=== PATIENT | male | born 1985 | race Caucasian/White ===

== ENCOUNTER → 2019-08-01 | Outpatient (CLI) | payer OTHER | LOC: M LABSMTC 10:52 | PROVIDERS: ATTEND Family Medicine | DX: Z11.59 Encounter for screening for other viral diseases (principal) ==

== ENCOUNTER → 2019-11-02 | Outpatient (CLI) | payer OTHER | LOC: M LABSMTC 09:30 | PROVIDERS: ATTEND Pediatrics | DX: Z11.59 Encounter for screening for other viral diseases (principal) ==

== ENCOUNTER → 2020-03-03 | Outpatient (CLI) | payer OTHER | LOC: M LABSMTC 14:01 | PROVIDERS: ATTEND Family Medicine | DX: Z20.828 Contact with and (suspected) exposure to other viral communicable diseases (principal) ==

== ENCOUNTER → 2020-04-20 | Outpatient (REF) ==
--- NOTE | 2020-04-21 08:15 | REP ---
INDICATION: AUTOPSY COMPARISON: None. TECHNIQUE: Single AP view of the pelvis. FINDINGS: Single AP view of the pelvis demonstrates no acute fracture or dislocation. Surrounding soft tissues are unremarkable. IMPRESSION: Normal pelvic radiograph. <Electronically signed by Jas Kapadia > 04/21/20 0852
--- NOTE | 2020-04-21 08:16 | REP ---
INDICATION: AUTOPSY COMPARISON: None. TECHNIQUE: AP, lateral views of the skull. FINDINGS: No obvious calvarial fracture identified. No pneumocephalus. No foreign body. IMPRESSION: No obvious calvarial fracture or pneumocephalus appreciated. <Electronically signed by Jas Kapadia > 04/21/20 0839
--- NOTE | 2020-04-21 08:17 | REP ---
INDICATION: AUTOPSY COMPARISON: None. TECHNIQUE: Portable AP view of the chest FINDINGS: The mediastinum and cardiac silhouette are within normal limits for portable technique. The lung alexander are clear without acute consolidation, effusion, or pneumothorax. Skeletal structures are intact. IMPRESSION: No acute cardiopulmonary process appreciated. <Electronically signed by Jas Kapadia > 04/21/20 0825
--- NOTE | 2020-04-21 08:18 | REP ---
INDICATION: AUTOPSY. COMPARISON: None. TECHNIQUE: Portable AP and lateral cervical spine FINDINGS: Examination is limited due to technique and overlying shoulder opacities. No obvious cervical fracture or dislocation is appreciated IMPRESSION: Limited examination. No obvious cervical fracture or dislocation. <Electronically signed by Jas Kapadia > 04/21/20 0864
[2020-04-21 21:00] LABS: INFLUENZA A AMPLIFICATION NEGATIVE (NEGATIVE); INFLUENZA B AMPLIFICATION NEGATIVE (NEGATIVE)
== END ==
LOC: M LAB 15:53